=== PATIENT | female | born 1980 | race Caucasian/White ===

== ENCOUNTER 2017-03-21 09:56 | Emergency (ER) | payer OTHER, SELFPAY ==
--- NOTE | 2017-03-21 11:19 | RAD ---
2 VIEWS OF RIGHT HIP: Date: 03/21/17 COMPARISON: None. HISTORY: Slipped and fell on steps this morning, pain right hip and back. FINDINGS: There is no evidence of fracture or dislocation seen. IMPRESSION: No acute findings. POS: JOVI
[2017-03-21] MEDS ORDERED: HYDROcodone/Acetaminophen 10/325 mg Tablet ONE (11:48)
--- NOTE | 2017-03-21 12:03 | RAD ---
AP PELVIS ONE VIEW: History: 36-year-old female with right hip and pelvic pain following a slip and fall. FINDINGS: IUD in place overlying the pelvis region. No fracture or dislocation or other acute process. IMPRESSION: Unremarkable AP pelvis. IUD in place. POS: [email or web address]
== END 2017-03-21 12:42 | disposition home or self-care (01) ==
LOC: ERS 09:56
DX: S30.0XXA Contusion of lower back and pelvis, initial encounter (principal); S70.01XA Contusion of right hip, initial encounter; F17.210 Nicotine dependence, cigarettes, uncomplicated; W10.9XXA Fall (on) (from) unspecified stairs and steps, initial encounter; Y92.019 Unspecified place in single-family (private) house as the place of occurrence of the external cause
CPT/HCPCS: 72170